=== PATIENT | female | born 1950 ===

== ENCOUNTER 2018-05-11 08:57 | Emergency (ER) | payer OTHER ==
[~2018-05-11] VITALS: Ht 170.2 cm; Wt 62.1 kg
[~2018-05-11 08:57] MED LIST: COMPLEJO B; GLUCOSAMINE 1500; NORVASC5 MG PO; OMEGA 3 FISH OI1 CAP PO; SYNTHROID112 MCG PO; TRICOR; ZOCOR; [UNRECOGNIZED DRUG - OTHER]
[2018-05-11] MEDS ORDERED: PLAVIX75 MG PO (09:11)
[2018-05-11] MEDS ORDERED: CLARITIN10 MG PO (09:12)
[2018-05-11] MEDS ORDERED: SINGULAIR 10MG10 MG PO (09:12)
[2018-05-11] MEDS ORDERED: PRILOSEC OTC20 MG PO (09:12)
[2018-05-11] MEDS ORDERED: WELLBUTRIN XL300 MG PO (09:12)
[2018-05-11] MEDS ORDERED: METFORMIN HCL500 M1 PO (09:12)
[2018-05-11] MEDS ORDERED: PEPCID20 MG PO (09:12)
[2018-05-11] MEDS ORDERED: GEMFIBROZIL600 MG PO (09:13)
[2018-05-11] MEDS ORDERED: VENTOLIN HFA18 GM (09:13)
[2018-05-11] MEDS ORDERED: ZITHROMAX200 MG PO (11:20)
== END 2018-05-11 12:26 | disposition home or self-care (01) ==
LOC: ER 08:57
DX: B34.9 Viral infection, unspecified (principal)

== ENCOUNTER → 2019-07-12 | Outpatient (CLI) | payer OTHER ==
[~2019-07-12] MED LIST changes: +CLARITIN10 MG PO; +GEMFIBROZIL600 MG PO; +METFORMIN HCL500 M1 PO; +PEPCID20 MG PO; +PLAVIX75 MG PO; +PRILOSEC OTC20 MG PO; +SINGULAIR 10MG10 MG PO; +VENTOLIN HFA18 GM; +WELLBUTRIN XL300 MG PO; +ZITHROMAX200 MG PO
== END | disposition home or self-care (01) ==
LOC: TOM 08:35
DX: J30.1 Allergic rhinitis due to pollen (principal); J45.40 Moderate persistent asthma, uncomplicated; Z72.0 Tobacco use

== ENCOUNTER 2020-04-10 09:33 | Outpatient (CLI) | payer OTHER | END 2020-04-10 09:41 | disposition home or self-care (01) | LOC: RAD 09:33 → MAMO-SONO 10:15 | PROVIDERS: ATTEND Internal Medicine | DX: M43.8X4 Other specified deforming dorsopathies, thoracic region (principal); Z12.31 Encounter for screening mammogram for malignant neoplasm of breast; M54.89 Other dorsalgia; J44.9 Chronic obstructive pulmonary disease, unspecified ==

== ENCOUNTER 2020-05-15 08:01 | Outpatient (CLI) | payer OTHER | END 2020-05-15 08:05 | disposition home or self-care (01) | LOC: RAD 08:01 | PROVIDERS: ATTEND Internal Medicine | DX: M17.0 Bilateral primary osteoarthritis of knee (principal) ==

== ENCOUNTER 2023-01-22 10:12 | Outpatient (CLI) | payer OTHER | END 2023-01-22 10:20 | disposition home or self-care (01) | LOC: MAMO-SONO 10:12 | PROVIDERS: ATTEND Internal Medicine | DX: Z12.31 Encounter for screening mammogram for malignant neoplasm of breast (principal) ==